=== PATIENT | male | born 1960 | race Caucasian/White ===

== ENCOUNTER → 2017-12-21 | Outpatient (CLI) | payer BC ==
--- NOTE | 2017-12-21 16:30 | KCIC ---
RS Compliance Statement: One or more of the following individualized dose reduction techniques were utilized for this examination: 1. Automated exposure control 2. Adjustment of the mA and/or kV according to patient size 3. Use of iterative reconstruction technique CT LOW DOSE LUNG SCREENING Clinical Indication: Lung cancer screening, nicotine dependence, smoker of at least 30 years. Comparison: None. TECHNIQUE: Helical CT imaging of the chest is performed without IV contrast using low-dose technique. Findings: Thyroid is symmetric. No mediastinal adenopathy. Limited evaluation of the olamide without IV contrast. There is borderline aneurysm of the ascending thoracic aorta, diameter is 4.3 cm. Three-vessel coronary artery disease. Cardiac size normal, no pericardial effusion. No pleural effusion. The central airways are patent. The lungs are clear. Visualized upper abdomen is unremarkable. Mild degenerative spondylosis of the thoracic spine. IMPRESSION: 1. Lungs are clear. 2. Lung RADS category 1. Continue annual screening with low-dose CT in 12 months. 3. Three-vessel coronary artery disease. 4. Borderline aneurysm of the ascending thoracic aorta. Electronically signed by: Terry Reed MD (12/21/2017 4:26 PM) [facility]
== END | disposition home or self-care (01) ==
LOC: KCIC CT 10:28
PROVIDERS: ATTEND Family Medicine
DX: Z12.2 Encounter for screening for malignant neoplasm of respiratory organs (principal); I25.10 Atherosclerotic heart disease of native coronary artery without angina pectoris; Z87.891 Personal history of nicotine dependence
CPT/HCPCS: G0297

== ENCOUNTER 2018-03-23 19:05 | Emergency (ER) | payer OTHER, BC ==
[~2018-03-23] VITALS: Ht 177.8 cm; Wt 89.9 kg
[2018-03-23] MEDS ORDERED: fentaNYL PF VIAL 100 MCG/2 ML VIAL IV ONE ×2 (19:30→21:30)
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
[2018-03-23 19:47] LABS: BASO % 1 % (0-3); EOS # 0.1 x10^3/uL (0.0-0.7); EOS % 2 % (0-3); LYMPH # 2.3 x10^3/uL (1.0-4.8); LYMPH % 29 % (24-48); MEAN CORPUSCULAR HEMOGLOBIN 29 pg (25-35); MEAN CORPUSCULAR HGB CONC 33 g/dL (31-37); MEAN CORPUSCULAR VOLUME 87 fL (79-100); MONO # 0.6 x10^3/uL (0.0-1.1); MONO % 7 % (0-9); NEUT # 4.7 x10^3uL (1.8-7.7); NEUT % 61 % (31-73); PLATELET COUNT 223 x10^3/uL (140-400); RED BLOOD COUNT 4.47 x10^6/uL (4.30-5.70); RED CELL DISTRIBUTION WIDTH 12.9 % (11.5-14.5); WHITE BLOOD COUNT 7.7 x10^3/uL (4.0-11.0)
[2018-03-23 19:56] LABS: GFR 76.7; POTASSIUM 4.4 mmol/L (3.5-5.1)
[2018-03-23 20:14] VITALS: BP 187/95
[2018-03-23] MEDS ORDERED: HYDR-3164 PO (20:55)
[2018-03-23] MEDS ORDERED: ORPH100T PO (20:55)
[2018-03-23] MEDS ORDERED: IBUP-1007 PO (20:55)
[2018-03-23] MEDS ORDERED: ORPHENADRINE CITRATE 60 MG/2 ML VIAL. IM ONE (21:30)
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
--- NOTE | 2018-03-24 06:39 | EKG ---
[facility] [address] [place] [address] Test Date: 2018-03-23 Test Time: 19:24:47 Pat Name: IZABEL GALLEGO Department: Room: Gender: Male Supervisor [employer]ening: : 1960 Requested By: CECELIA MARIA Order Number: [id number] Reading MD: Bunny Amor Measurements Intervals [place] Rate: 72 P: 32 WI: 142 QRS: 18 QRSD: 92 T: 20 QT: 400 QTc: 440 Interpretive Statements SINUS RHYTHM LEFT ATRIAL ABNORMALITY Electronically Signed On 03-30-2018 11:22:36 [employer]PENTER MATE by Bunny Amor
== END 2018-03-23 21:10 | disposition home or self-care (01) ==
LOC: ER 19:05
DX: S20.219A Contusion of unspecified front wall of thorax, initial encounter (principal); V89.2XXA Person injured in unspecified motor-vehicle accident, traffic, initial encounter; Y93.89 Activity, other specified; Y92.89 Other specified places as the place of occurrence of the external cause; Y99.8 Other external cause status
CPT/HCPCS: 36415; 71046; 80048; 84484; 85025; 93005; 96372; 96374; 96375; 99284; J2360; J3010

== ENCOUNTER → 2018-04-01 | Outpatient (CLI) | payer OTHER, BC ==
[2018-03-23 20:14] VITALS: BP 187/95
[~2018-04-01] MED LIST: HYDR-3164 PO; IBUP-1007 PO; ORPH100T PO
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
== END | disposition home or self-care (01) ==
LOC: RAD 08:48
PROVIDERS: ATTEND Physician Assistant Medical
DX: S22.41XA Multiple fractures of ribs, right side, initial encounter for closed fracture (principal); V89.2XXA Person injured in unspecified motor-vehicle accident, traffic, initial encounter; Y93.89 Activity, other specified; Y92.89 Other specified places as the place of occurrence of the external cause; Y99.8 Other external cause status
CPT/HCPCS: 71046; 71110

== ENCOUNTER → 2018-06-08 | Outpatient (CLI) | payer BC, MEDICARE, OTHER ==
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
== END | disposition home or self-care (01) ==
LOC: RAD 16:01
PROVIDERS: ATTEND Family Medicine
DX: M47.814 Spondylosis without myelopathy or radiculopathy, thoracic region (principal); V89.2XXA Person injured in unspecified motor-vehicle accident, traffic, initial encounter; Y93.89 Activity, other specified; Y92.89 Other specified places as the place of occurrence of the external cause; Y99.8 Other external cause status
CPT/HCPCS: 72072

== ENCOUNTER → 2018-12-22 | Outpatient (CLI) | payer BC, MEDICARE ==
--- NOTE | 2018-12-22 18:12 | KCIC ---
Examination: CT LOW DOSE LUNG SCREENING History: Lung cancer screening Comparison/Correlation: 12/21/2017 CT low dose chest Findings: Axial images of the chest were obtained according to low-dose lung cancer screening CT protocol. Sagittal and coronal reformatted images were provided. Multiple punctate nodular infiltrates which may represent tree-in-bud pattern noted at the lateral right mid thoracic level within the upper lobe. Right medial basilar linear atelectasis and punctate nodular infiltrate is noted. Minimal nodularity in the medial left lung base also seen. Bronchial wall mucosal thickening bilaterally is evident involving the lower lobes and to lesser extent at the right upper lobe. Ascending thoracic aortic diameter of 4.3 similar again seen. No enlarged thoracic lymph nodes. Marked calcification is evident involving the left anterior descending coronary artery in particular. Calcification otherwise also seen involving coronary arteries. Impression: Lung-RADS category 3-probably benign. Multiple new nodules and atelectasis. Bronchitis. Correlate for underlying infectious or inflammatory process. Follow-up in 3-4 months to assess resolution is recommended. PQRS Compliance Statement: One or more of the following individualized dose reduction techniques were utilized for this examination: 1. Automated exposure control 2. Adjustment of the mA and/or kV according to patient size 3. Use of iterative reconstruction technique Electronically signed by: Patrice Vides MD (12/22/2018 6:09 PM) [facility]
== END | disposition home or self-care (01) ==
LOC: KCIC CT 15:09
PROVIDERS: ATTEND Internal Medicine
DX: F17.210 Nicotine dependence, cigarettes, uncomplicated (principal); Z12.2 Encounter for screening for malignant neoplasm of respiratory organs; J98.11 Atelectasis; I25.10 Atherosclerotic heart disease of native coronary artery without angina pectoris; R91.8 Other nonspecific abnormal finding of lung field; I10 Essential (primary) hypertension; J40 Bronchitis, not specified as acute or chronic
CPT/HCPCS: G0297

== ENCOUNTER → 2019-06-09 | Outpatient (CLI) | payer BC, MEDICARE ==
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
== END | disposition home or self-care (01) ==
LOC: KCIC CT 08:20
PROVIDERS: ATTEND Family Medicine
DX: Z12.2 Encounter for screening for malignant neoplasm of respiratory organs (principal); J43.2 Centrilobular emphysema; I77.810 Thoracic aortic ectasia; R91.8 Other nonspecific abnormal finding of lung field; I25.10 Atherosclerotic heart disease of native coronary artery without angina pectoris; M51.34 Other intervertebral disc degeneration, thoracic region; M84.48XD Pathological fracture, other site, subsequent encounter for fracture with routine healing; F17.210 Nicotine dependence, cigarettes, uncomplicated
CPT/HCPCS: G0297

== ENCOUNTER → 2021-03-31 | Outpatient (CLI) | payer OTHER, MEDICARE ==
--- NOTE | 2021-03-31 14:45 | KCIC ---
EXAMINATION: CT chest without IV contrast INDICATION:61 years, Male, history of smoking, screening for lung cancer. COMPARISON: 06/09/2019 TECHNIQUE: Low-dose CT scan of the chest with 3-D MIP coronal and sagittal reconstructions was [facility] ed. Exposure: One or more of the following individualized dose reduction techniques were utilized for [facility] s examination: 1. Automated exposure control 2. Adjustment of the mA and/or kV according to patient size 3. Use of iterative reconstruction technique. Lung-RADS assessment categories: 0: Incomplete. Additional lung cancer screening CT images and/or comparison to prior chest CT examina tions is needed. 1: Negative. Continue annual screening with low dose CT (LDCT) in 12 months. 2: Benign appearance or behavior. Continue annual screening with LDCT in 12 months. 3: Probably benign. 6 month follow-up LDCT recommended. 4A: Suspicious. 3 month LDCT follow up, PET/CT may be used when there is ? 8mm (? 268 mm3) solid comp onent. 4B or 4X: Very Suspicious. Chest CT with or without contrast, PET/CT, and/or biopsy recommended. PET/ CT may be used when there is ? 8mm (? 268 mm3) solid component. For new large nodules that develop on an annual repeat screening CT, a 1 month LDCT may be recommended to address potentially infectious o r inflammatory conditions. Modifiers: S: Clinically significant or potentially clinically significant findings (non-lung cancer). Exposure: One or more of the following individualized dose reduction techniques were utilized for [facility] s examination: 1. Automated exposure control 2. Adjustment of the mA and/or kV according to patient size 3. Use of iterative reconstruction technique. FINDINGS: LUNGS/PLEURA: Central airways are patent. No focal consolidation, pleural effusion or pneumothorax. S imilar mild pulmonary emphysema. Stable 4 mm pulmonary nodule in the left lower lobe (series 2 image 28). No pleural effusion or focal pleural lesion. MEDIASTINUM: No pathologic mediastinal or hilar adenopathy. Similar mild ascending thoracic aortic an eurysm measures 4.1 cm in diameter. Pulmonary arteries are normal in caliber. The heart is normal in size. No pericardial effusion. Severe calcified coronary atherosclerosis. The visualized thyroid and the esophagus are unremarkable. AXILLA/SOFT TISSUE: No supraclavicular or axillary adenopathy. Regional soft tissues are within zeus l limits. UPPER ABDOMEN: The visualized upper abdomen appears unremarkable, within the limitation of noncontras t exam. BONES: No evidence of acute fractures or aggressive osseous lesions. Multilevel degenerative changes in the spine. IMPRESSION: 1. Lung-RADS 2: Benign appearance or behavior. Continue annual screening with LDCT in 12 months. 2. Stable 4 mm pulmonary nodule in the left lower lobe. 3. Stable mild ascending thoracic aortic aneurysm. 4. Severe coronary artery atherosclerotic calcifications. Electronically signed by: Luis Agee MD (03/31/2021 2:43 PM) [facility]
== END ==
LOC: KCIC CT 10:28
PROVIDERS: ATTEND Family Medicine
DX: R91.1 Solitary pulmonary nodule (principal); I25.10 Atherosclerotic heart disease of native coronary artery without angina pectoris; I71.2 Thoracic aortic aneurysm, without rupture; J43.9 Emphysema, unspecified; M47.819 Spondylosis without myelopathy or radiculopathy, site unspecified; F17.210 Nicotine dependence, cigarettes, uncomplicated
CPT/HCPCS: 71271